=== PATIENT | female | born 1975 | race Two or more races ===

== ENCOUNTER 2025-04-01 12:38 | Emergency (ER) | payer OTHER ==
[~2025-04-01] VITALS: Ht 162.6 cm; Wt 56.7 kg
[2025-04-01] MEDS ORDERED: METFORMIN HCL1000 M2 PO (12:46)
[2025-04-01] MEDS ORDERED: COZAAR100 MG PO (12:46)
[2025-04-01] MEDS ORDERED: SIMVASTATIN5 MG PO (12:47)
[2025-04-01] MEDS ORDERED: KETOROLAC TROMETHAMINE 60 MG VIAL IM ONE (13:45)
[2025-04-01 14:15] LABS: BASO % 0.8 % (0.1-1.2); EOS # 0.36 (0.04-0.54); EOS % 5.6 % (0.7-7.0); LYMPH # 2.34 (1.18-3.74); LYMPH % 36.4 % (19.3-53.1); MEAN PLATELET VOLUME 9.10 fl (9.4-12.4); MONO # 0.48 (0.24-0.82); MONO % 7.5 % (4.7-12.5); NEUT # 3.19 (1.56-6.13); NEUT % 49.5 % (34.0-71.1); RED CELL DISTRIBUTION WIDTH 15.3 % (11.6-14.4)
[2025-04-01 14:31] LABS: ALT/SGPT 21.0 U/L (12-78); AST/SGOT 13.0 U/L (15-37); BILIRUBIN TOTAL 0.16 mg/dL (0.3-1.2); BUN CREA RATIO 17.0 (7.0-25.0); CREATININE SERUM 0.53 mg/dL (0.55-1.02); GFR 121.62; GLOBULINA 3.4 G/DL (2.4-3.5); GLUCOSE FASTING 95.0 mg/dL (65-100); OSMOLALITY SERUM 285.0 MOSM/KG (275-295)
== END 2025-04-01 16:35 | disposition home or self-care (01) ==
LOC: EDBD 12:38 → ER 12:38 → EDBD 14:03 → ER 14:03
PROVIDERS: Emergency Medicine
DX: M94.0 Chondrocostal junction syndrome [Tietze] (principal); E11.9 Type 2 diabetes mellitus without complications; Z79.84 Long term (current) use of oral hypoglycemic drugs; I10 Essential (primary) hypertension; E07.89 Other specified disorders of thyroid